=== PATIENT | female | born 1995 | race American Indian/Alaskan Native ===

== ENCOUNTER 2022-02-27 15:02 | Outpatient (CLI) | payer OTHER, MEDICARE ==
[2022-02-27] MEDS ORDERED: LACTATED RINGERS 500 ML IV ONE (16:30)
[2022-02-27 17:03] LABS: Bilirubin,Urine NEG (Negative); Blood,Urine NEG (Negative); Color,Urine Yellow (Yellow); Protein,Urine <15 mg/dL mg/dL (Negative); Urobilinogen,Urine < 2.0 mg/dL (<2.0)
[2022-02-27 17:10] LABS: Bacteria,Urine 1+ /HPF (Negative); Mucus,Urine 2+ /HPF
[2022-02-27 17:55] LABS: Hematocrit 37.4 % (30.3-42.9); Mean Corpuscular HGB Conc 32 % (30-34); Mean Corpuscular Volume 85 fl (79-97); Platelet Count 259 K/mm3 (140-440); Red Blood Count 4.42 M/mm3 (3.65-5.03); Red Cell Distribution Width 13.9 % (13.2-15.2)
[2022-02-27 18:11] LABS: Alanine Aminotransferase 16 units/L (7-56); Uric Acid 4.7 mg/dL (3.5-7.6)
[2022-02-27 18:32] VITALS: BP 126/70
== END 2022-02-27 19:12 | disposition home or self-care (01) ==
LOC: TRG 15:02 → APU 15:02 → TRG 19:12
PROVIDERS: ATTEND Obstetrics & Gynecology
DX: Z34.92 Encounter for supervision of normal pregnancy, unspecified, second trimester (principal); Z3A.26 26 weeks gestation of pregnancy
CPT/HCPCS: 36415; 81001; 82565; 83615; 84450; 84460; 84550; 85027

== ENCOUNTER 2022-04-30 14:51 | Inpatient (IN) | payer OTHER, MEDICARE ==
[2022-04-30] MEDS ORDERED: LACTATED RINGERS 1,000 ML IV SCH (16:15)
[2022-04-30 17:04] LABS: Hematocrit 36.5 % (30.3-42.9); Hemoglobin 11.9 gm/dl (10.1-14.3); Mean Corpuscular HGB Conc 33 % (30-34); Mean Corpuscular Volume 81 fl (79-97); Platelet Count 204 K/mm3 (140-440); Red Cell Distribution Width 13.9 % (13.2-15.2)
[2022-04-30] MEDS ORDERED: ACETAMINOPHEN 325 MG TAB PO PRN (17:17)
[2022-04-30] MEDS ORDERED: DOCUSATE SODIUM 100 MG CAP PO PRN (17:17)
[2022-04-30] MEDS ORDERED: ONDANSETRON 4 MG/2 ML INJ IV PRN (17:17)
[2022-04-30] MEDS ORDERED: SODIUM CHLORIDE NASAL SPRAY 44ML NS PRN (17:17)
[2022-04-30] MEDS ORDERED: CALCIUM GLUCONATE 1000 MG/10 ML INJ IV SCH (17:17)
[2022-04-30] MEDS ORDERED: SIMETHICONE 80 MG CHEW TAB PO PRN (17:17)
[2022-04-30 17:19] LABS: Alanine Aminotransferase 13 units/L (7-56); Uric Acid 4.7 mg/dL (3.5-7.6)
[2022-04-30] MEDS: hydrALAZINE 20 MG/1 ML INJ IV PRN ×2 (17:35→18:32)
[2022-04-30] MEDS ORDERED: MAGNESIUM SULFATE 40GM/1000ML 40 GM/1,000 ML BAG IV SCH (18:00)
[2022-04-30] MEDS ORDERED: MAGNESIUM SULFATE 4 GM/100 ML BAG IV ONE (18:00)
[2022-04-30] MEDS ORDERED: AMPICILLIN/NS 2 GM/100 ML 2 GM/100 ML BAG IV ONE (18:00)
[2022-04-30 18:05] LABS: Bacteria,Urine 3+ /HPF (Negative); Mucus,Urine FEW /HPF
[2022-04-30] MEDS: BETAMET ACET/BETAMET NA PH 6 MG/ML INJ 5 ML MDV IM SCH (18:14)
[2022-04-30 18:15] LABS: Color,Urine Straw (Yellow)
--- NOTE | 2022-04-30 21:25 | History and Physical Report ---
History of Present Illness Date of examination: 04/30/22 Date of admission: 04/30/22 16:16 Chief complaint: sent from [facility] clinic for delivery History of present illness: Pt is a 26 year old -[place] female primigravida ALEXANDER 06/02/22 at 35w2d who presents from [facility] clinic with blood pressures 160-190s/90-100s. The provider there called the on-call physician with recommendation for delivery. She denies headache, blurred vision or RUQ pain. Upon presentation to triage, pt's blood pressures 130-190/90-100s. She has had care at [facility] with comanagement by [facility] secondary to morbid obesity, epilepsy, gestational diabetes A1, anemia with h/o blood transfusion, genital herpes without lesion or prodrome and GBS positive status. Past History Past Medical History: seizure, hematologic disorders (anemia with h/o transfusion), other (morbid obesity) Past Surgical History: no surgical history [employer] REP History: herpes Family/Genetic History: diabetes, heart disease, hypertension Social history: no significant social history - Obstetrical History Expected Date of Delivery: 06/02/22 Actual Gestation: 35 Week(s) 2 Day(s) : 1 Medications and Allergies Allergies Allergy/AdvReac Type Severity Reaction Status Date / Time No Known Allergies Allergy Verified 11/05/15 17:35 Home Medications Medication Instructions Recorded Confirmed Last Taken Type Acyclovir [Zovirax Tab] 800 mg PO 5XD #50 tab 03/26/15 02/27/22 02/27/22 09:30 Rx Ibuprofen [Motrin] 600 mg PO Q8H PRN #20 tablet 07/25/18 02/27/22 02/27/22 09:30 Rx Active Meds: Active Medications Acetaminophen (Acetaminophen 325 Mg Tab) 650 mg PO Q4H PRN PRN Reason: Pain MILD(1-3)/Fever >100.5/JENKINS Betamethasone Acet/Betameth SodPhos (Betamet Acet/Betamet Na Ph 6 Mg/Ml Inj 5 Ml Mdv) 12 mg IM Q24H SARAH Stop: 05/01/22 18:01 Last Admin: 04/30/22 18:14 Dose: 12 mg Calcium Gluconate (Calcium Gluconate 1000 Mg/10 Ml Inj) 1,000 mg IV ONCE SARAH Dinoprostone (Dinoprostone 10 Mg Vag Supp) 10 mg VG ONCE ONE Stop: 04/30/22 21:23 Docusate Sodium (Docusate Sodium 100 Mg Cap) 100 mg PO Q12H PRN PRN Reason: Constipation Hydralazine HCl (Hydralazine 20 Mg/1 Ml Inj) 5 mg IV Q30MIN PRN PRN Reason: Hypertension Last Admin: 04/30/22 18:32 Dose: 5 mg Lactated Ringer's (Lactated Ringers) 1,000 mls @ 125 mls/hr IV DIRECT SARAH Last Admin: 04/30/22 17:57 Dose: 75 mls/hr Lactated Ringer's (Lactated Ringers) 1,000 mls @ 125 mls/hr IV DIRECT SARAH Ampicillin Sodium (Ampicillin/Ns 1 Gm/50 Ml) 1 gm in 50 mls @ 100 mls/hr IV Q4H SARAH; Protocol Magnesium Sulfate (Magnesium Sulfate 40gm/1000ml) 40 gm in 1,000 mls @ 50 mls/hr IV DIRECT SARAH Multivitamins/Iron/Calcium ( [id number] Fumarate-Folic Acid Vit Tab) 1 each PO QDAY SARAH Ondansetron HCl (Ondansetron 4 Mg/2 Ml Inj) 4 mg IV Q6H PRN PRN Reason: Nausea And Vomiting Simethicone (Simethicone 80 Mg Chew Tab) 80 mg PO Q6H PRN PRN Reason: Gas pain Sodium Chloride (Sodium Chloride Nasal [place] 44ml) 2 spray NS Q4H PRN PRN Reason: Congestion Review of Systems All systems: negative - Vital Signs Vital signs: Vital Signs Pulse Ox 83 L 02/27/22 18:52 Temp Pulse Resp BP Pulse Ox 97.8 F 106 H 16 158/70 98 04/30/22 20:19 04/30/22 21:21 04/30/22 20:19 04/30/22 21:21 04/30/22 21:18 - Physical Exam Breasts: Positive: deferred Abdomen: Positive: soft (obese, gravid ) Uterus: Positive: enlarged (gravid ) Extremities: Positive: edema - Obstetrical FHR: auscultation normal Uterine Contraction Monitor Mode: External Uterine Contraction Pattern: Absent Results Result Diagrams: 04/30/22 16:27 04/30/22 16:27 Abnormal lab results 09/09/2004/30/22 04/30/22 Range/Units 15:30 16:27 16:27 MCH 26 L (28-32) pg Creatinine 0.5 L (0.6-1.2) mg/dL Lactate Dehydrogenase 227 H (91-180) units/L Urine WBC (Auto) 7.0 H (0.0-6.0) /HPF U Epithel Cells (Auto) 41.0 H (0-13.0) /HPF All other labs normal. Assessment and Plan A: IUP at 35w2d Gestational Hypertension with Severe Features Morbid Obesity Epilepsy Gestational Diabetes A1 H/o Anemia with blood transfusion Genital Herpes without lesion or prodrome GBS positive status P: Admit to labor and delivery Begin magnesium sulfate for seizure prophylaxis Betamethasone 12 mg IM q 24 hrs x 2 doses Valtrex suppressive therapy Cervical ripening with cervidil Accuchecks q 6 hrs initially Closely monitor maternal and status
[2022-04-30] MEDS ORDERED: AMPICILLIN/NS 1 GM/50 ML 1 GM/50 ML BAG IV SCH (22:00)
[2022-04-30] MEDS ORDERED: DINOPROSTONE 10 MG VAG SUPP VG ONE (23:22)
[2022-05-01] MEDS: hydrALAZINE 20 MG/1 ML INJ IV PRN ×2 (04:22→04:50)
--- NOTE | 2022-05-01 08:17 | Progress Note ---
Assessment and Plan - Patient Problems (1) Hypertension affecting Current Visit: Yes Status: Acute Plan to address problem: Initiate induction with Cervidil (2) Morbid obesity Current Visit: Yes Status: Acute (3) Gestational diabetes Current Visit: Yes Status: Acute Subjective - Subjective Date of service: 05/01/22 Principal diagnosis: Hypertension affecting Interval history: 26-year-old G1, P0 at 35+2 weeks being induced for hypertension and diabetes. The patient will be receiving Cervidil for her induction. She is currently without any complaints. She is receiving magnesium sulfate therapy for preeclampsia. Patient reports: movement normal, no new complaints Objective - Vital Signs Vital Signs: Vital Signs - 12hr 04/30/22 04/30/22 04/30/22 20:18 20:19 20:20 Temperature 97.8 F Pulse Rate 110 H 104 H Respiratory 16 Rate Blood Pressure 167/83 O2 Sat by Pulse 98 99 Oximetry 04/30/22 04/30/22 04/30/22 20:23 20:28 20:33 Temperature Pulse Rate 106 H 104 H 110 H Respiratory Rate Blood Pressure O2 Sat by Pulse 98 99 97 Oximetry 04/30/22 04/30/22 04/30/22 20:35 20:38 20:43 Temperature Pulse Rate 108 H 105 H 107 H Respiratory Rate Blood Pressure 159/83 O2 Sat by Pulse 99 98 Oximetry 04/30/22 04/30/22 04/30/22 20:48 20:50 20:53 Temperature Pulse Rate 114 H 104 H 113 H Respiratory Rate Blood Pressure 151/71 O2 Sat by Pulse 99 99 Oximetry 04/30/22 04/30/22 04/30/22 20:58 21:03 21:05 Temperature Pulse Rate 114 H 107 H 109 H Respiratory Rate Blood Pressure 151/75 O2 Sat by Pulse 98 99 Oximetry 04/30/22 04/30/22 04/30/22 21:08 21:13 21:18 Temperature Pulse Rate 106 H 104 H 105 H Respiratory Rate Blood Pressure O2 Sat by Pulse 99 98 98 Oximetry 04/30/22 04/30/22 04/30/22 21:21 21:23 21:28 Temperature Pulse Rate 106 H 110 H 106 H Respiratory Rate Blood Pressure 158/70 O2 Sat by Pulse 98 99 Oximetry 04/30/22 04/30/22 04/30/22 21:33 21:36 21:38 Temperature Pulse Rate 106 H 107 H 107 H Respiratory Rate Blood Pressure 170/86 O2 Sat by Pulse 98 98 Oximetry 04/30/22 04/30/22 04/30/22 21:43 21:48 21:50 Temperature Pulse Rate 116 H 115 H 107 H Respiratory Rate Blood Pressure 165/81 O2 Sat by Pulse 99 99 Oximetry 04/30/22 04/30/22 04/30/22 21:53 21:58 22:03 Temperature Pulse Rate 111 H 108 H 107 H Respiratory Rate Blood Pressure O2 Sat by Pulse 99 98 99 Oximetry 04/30/22 04/30/22 04/30/22 22:05 22:08 22:13 Temperature Pulse Rate 108 H 107 H 104 H Respiratory Rate Blood Pressure 155/73 O2 Sat by Pulse 98 99 Oximetry 04/30/22 04/30/22 04/30/22 22:18 22:20 22:23 Temperature Pulse Rate 101 H 102 H 102 H Respiratory Rate Blood Pressure 154/70 O2 Sat by Pulse 98 98 Oximetry 04/30/22 04/30/22 04/30/22 22:28 22:33 22:35 Temperature Pulse Rate 99 H 108 H 100 H Respiratory Rate Blood Pressure 159/77 O2 Sat by Pulse 100 99 Oximetry 04/30/22 04/30/22 04/30/22 22:38 22:43 22:48 Temperature Pulse Rate 104 H 103 H 104 H Respiratory Rate Blood Pressure O2 Sat by Pulse 99 99 98 Oximetry 04/30/22 04/30/22 04/30/22 22:50 22:53 22:58 Temperature Pulse Rate 103 H 105 H 102 H Respiratory Rate Blood Pressure 144/75 O2 Sat by Pulse 98 98 Oximetry 04/30/22 04/30/22 04/30/22 23:03 23:05 23:08 Temperature Pulse Rate 106 H 100 H 103 H Respiratory Rate Blood Pressure 137/65 O2 Sat by Pulse 99 97 Oximetry 04/30/22 04/30/22 04/30/22 23:13 23:18 23:20 Temperature Pulse Rate 105 H 102 H 105 H Respiratory Rate Blood Pressure 143/67 O2 Sat by Pulse 99 98 Oximetry 04/30/22 04/30/22 04/30/22 23:23 23:28 23:33 Temperature Pulse Rate 101 H 105 H 106 H Respiratory Rate Blood Pressure O2 Sat by Pulse 98 99 99 Oximetry 04/30/22 04/30/22 04/30/22 23:35 23:38 23:43 Temperature Pulse Rate 103 H 105 H 102 H Respiratory Rate Blood Pressure 149/68 O2 Sat by Pulse 98 98 Oximetry 04/30/22 04/30/22 04/30/22 23:48 23:50 23:53 Temperature Pulse Rate 103 H 105 H 109 H Respiratory Rate Blood Pressure 158/75 O2 Sat by Pulse 98 98 Oximetry 04/30/22 05/01/22 05/01/22 23:58 00:03 00:06 Temperature Pulse Rate 104 H 109 H 102 H Respiratory Rate Blood Pressure 181/86 O2 Sat by Pulse 97 98 Oximetry 05/01/22 05/01/22 05/01/22 00:08 00:13 00:18 Temperature Pulse Rate 107 H 114 H 105 H Respiratory Rate Blood Pressure O2 Sat by Pulse 98 97 98 Oximetry 05/01/22 05/01/22 05/01/22 00:20 00:23 00:28 Temperature Pulse Rate 104 H 115 H 108 H Respiratory Rate Blood Pressure 152/74 O2 Sat by Pulse 98 98 Oximetry 05/01/22 05/01/22 05/01/22 00:33 00:35 00:38 Temperature Pulse Rate 109 H 100 H 104 H Respiratory Rate Blood Pressure 157/76 O2 Sat by Pulse 99 98 Oximetry 05/01/22 05/01/22 05/01/22 00:43 00:48 00:50 Temperature Pulse Rate 108 H 104 H 101 H Respiratory Rate Blood Pressure 146/70 O2 Sat by Pulse 98 98 Oximetry 05/01/22 05/01/22 05/01/22 00:53 00:58 01:03 Temperature Pulse Rate 106 H 103 H 101 H Respiratory Rate Blood Pressure O2 Sat by Pulse 99 98 99 Oximetry 05/01/22 05/01/22 05/01/22 01:05 01:08 01:13 Temperature Pulse Rate 103 H 102 H 105 H Respiratory Rate Blood Pressure 149/71 O2 Sat by Pulse 99 98 Oximetry 05/01/22 05/01/22 05/01/22 01:18 01:21 01:23 Temperature Pulse Rate 103 H 103 H 114 H Respiratory Rate Blood Pressure 157/77 O2 Sat by Pulse 98 98 Oximetry 05/01/22 05/01/22 05/01/22 01:28 01:33 01:35 Temperature Pulse Rate 101 H 115 H 103 H Respiratory Rate Blood Pressure 156/68 O2 Sat by Pulse 98 98 Oximetry 05/01/22 05/01/22 05/01/22 01:38 01:43 01:48 Temperature Pulse Rate 103 H 101 H 103 H Respiratory Rate Blood Pressure O2 Sat by Pulse 98 98 98 Oximetry 05/01/22 05/01/22 05/01/22 01:50 01:53 01:58 Temperature Pulse Rate 100 H 104 H 104 H Respiratory Rate Blood Pressure 162/71 O2 Sat by Pulse 97 98 Oximetry 05/01/22 05/01/22 05/01/22 02:03 02:05 02:08 Temperature Pulse Rate 98 H 94 H 98 H Respiratory Rate Blood Pressure 152/70 O2 Sat by Pulse 99 98 Oximetry 05/01/22 05/01/22 05/01/22 02:13 02:18 02:20 Temperature Pulse Rate 98 H 112 H 99 H Respiratory Rate Blood Pressure 150/71 O2 Sat by Pulse 98 98 Oximetry 05/01/22 05/01/22 05/01/22 02:23 02:28 02:33 Temperature Pulse Rate 103 H 105 H 95 H Respiratory Rate Blood Pressure O2 Sat by Pulse 99 99 100 Oximetry 05/01/22 05/01/22 05/01/22 02:35 02:38 02:43 Temperature Pulse Rate 100 H 99 H 92 H Respiratory Rate Blood Pressure 146/88 O2 Sat by Pulse 97 98 Oximetry 05/01/22 05/01/22 05/01/22 02:48 02:50 02:53 Temperature Pulse Rate 104 H 96 H 119 H Respiratory Rate Blood Pressure 155/87 O2 Sat by Pulse 96 99 Oximetry 05/01/22 05/01/22 05/01/22 02:58 03:03 03:05 Temperature Pulse Rate 100 H 102 H 99 H Respiratory Rate Blood Pressure 162/87 O2 Sat by Pulse 98 97 Oximetry 05/01/22 05/01/22 05/01/22 03:08 03:13 03:18 Temperature Pulse Rate 100 H 101 H 102 H Respiratory Rate Blood Pressure O2 Sat by Pulse 98 97 97 Oximetry 05/01/22 05/01/22 05/01/22 03:20 03:23 03:28 Temperature Pulse Rate 115 H 107 H 98 H Respiratory Rate Blood Pressure 174/92 O2 Sat by Pulse 97 95 Oximetry 05/01/22 05/01/22 05/01/22 03:30 03:33 03:36 Temperature Pulse Rate 99 H 99 H 118 H Respiratory Rate Blood Pressure 167/83 O2 Sat by Pulse 94 96 Oximetry 05/01/22 05/01/22 05/01/22 03:38 03:43 03:48 Temperature Pulse Rate 104 H 110 H 104 H Respiratory Rate Blood Pressure O2 Sat by Pulse 96 97 98 Oximetry 05/01/22 05/01/22 05/01/22 03:50 03:51 03:53 Temperature Pulse Rate 98 H 101 H 103 H Respiratory Rate Blood Pressure 165/76 167/71 O2 Sat by Pulse 94 Oximetry 05/01/22 05/01/22 05/01/22 03:58 04:03 04:05 Temperature Pulse Rate 104 H 98 H 99 H Respiratory Rate Blood Pressure 171/78 O2 Sat by Pulse 98 96 Oximetry 05/01/22 05/01/22 05/01/22 04:08 04:13 04:18 Temperature Pulse Rate 102 H 94 H 93 H Respiratory Rate Blood Pressure O2 Sat by Pulse 97 98 98 Oximetry 05/01/22 05/01/22 05/01/22 04:20 04:23 04:28 Temperature Pulse Rate 93 H 94 H 95 H Respiratory Rate Blood Pressure 175/83 O2 Sat by Pulse 98 99 Oximetry 05/01/22 05/01/22 05/01/22 04:33 04:35 04:38 Temperature Pulse Rate 96 H 94 H 98 H Respiratory Rate Blood Pressure 170/80 O2 Sat by Pulse 99 98 Oximetry 05/01/22 05/01/22 05/01/22 04:43 04:48 04:51 Temperature Pulse Rate 98 H 95 H 95 H Respiratory Rate Blood Pressure 147/85 O2 Sat by Pulse 95 98 Oximetry 05/01/22 05/01/22 05/01/22 04:53 04:58 05:03 Temperature Pulse Rate 97 H 96 H 97 H Respiratory Rate Blood Pressure O2 Sat by Pulse 99 99 99 Oximetry 05/01/22 05/01/22 05/01/22 05:05 05:08 05:13 Temperature Pulse Rate 103 H 95 H 95 H Respiratory Rate Blood Pressure 154/83 O2 Sat by Pulse 99 99 Oximetry 05/01/22 05/01/22 05/01/22 05:18 05:20 05:23 Temperature Pulse Rate 106 H 96 H 101 H Respiratory Rate Blood Pressure 166/85 O2 Sat by Pulse 99 99 Oximetry 05/01/22 05/01/22 05/01/22 05:28 05:33 05:38 Temperature Pulse Rate 96 H 102 H 98 H Respiratory Rate Blood Pressure O2 Sat by Pulse 99 98 99 Oximetry 05/01/22 05/01/22 05/01/22 05:42 05:43 05:48 Temperature Pulse Rate 93 H 107 H 112 H Respiratory Rate Blood Pressure 148/87 O2 Sat by Pulse 98 99 Oximetry 05/01/22 05/01/22 05/01/22 05:50 05:53 05:58 Temperature Pulse Rate 90 96 H 96 H Respiratory Rate Blood Pressure 150/64 O2 Sat by Pulse 99 99 Oximetry 05/01/22 05/01/22 05/01/22 06:03 06:05 06:08 Temperature Pulse Rate 92 H 90 94 H Respiratory Rate Blood Pressure 139/64 O2 Sat by Pulse 97 97 Oximetry 05/01/22 05/01/22 05/01/22 06:13 06:18 06:20 Temperature Pulse Rate 98 H 100 H 100 H Respiratory Rate Blood Pressure 135/65 O2 Sat by Pulse 97 98 Oximetry 05/01/22 05/01/22 05/01/22 06:23 06:28 06:33 Temperature Pulse Rate 96 H 97 H 105 H Respiratory Rate Blood Pressure O2 Sat by Pulse 98 99 99 Oximetry 05/01/22 05/01/22 05/01/22 06:36 06:38 06:43 Temperature Pulse Rate 97 H 98 H 98 H Respiratory Rate Blood Pressure 170/89 O2 Sat by Pulse 99 100 Oximetry 05/01/22 05/01/22 05/01/22 06:48 06:50 06:53 Temperature Pulse Rate 114 H 106 H 109 H Respiratory Rate Blood Pressure 169/86 O2 Sat by Pulse 99 98 Oximetry 05/01/22 05/01/22 05/01/22 06:58 07:03 07:05 Temperature Pulse Rate 109 H 104 H 103 H Respiratory Rate Blood Pressure 157/73 O2 Sat by Pulse 99 99 Oximetry 05/01/22 05/01/22 05/01/22 07:08 07:13 07:18 Temperature Pulse Rate 106 H 103 H 100 H Respiratory Rate Blood Pressure O2 Sat by Pulse 99 99 99 Oximetry 05/01/22 05/01/2222 07:20 07:23 07:28 Temperature Pulse Rate 100 H 103 H 106 H Respiratory Rate Blood Pressure 155/71 O2 Sat by Pulse 99 98 Oximetry 05/01/22 05/01/22 05/01/22 07:33 07:35 07:38 Temperature Pulse Rate 109 H 100 H 105 H Respiratory Rate Blood Pressure 160/70 O2 Sat by Pulse 98 97 Oximetry 05/01/22 05/01/22 05/01/22 07:43 07:48 07:50 Temperature Pulse Rate 106 H 100 H 104 H Respiratory Rate Blood Pressure 149/66 O2 Sat by Pulse 97 97 Oximetry 05/01/22 05/01/22 05/01/22 07:53 07:58 08:03 Temperature Pulse Rate 103 H 118 H 112 H Respiratory Rate Blood Pressure O2 Sat by Pulse 98 98 98 Oximetry 05/01/22 05/01/22 05/01/22 08:07 08:08 08:13 Temperature Pulse Rate 105 H 105 H 106 H Respiratory Rate Blood Pressure 151/74 O2 Sat by Pulse 99 98 Oximetry - Labs Labs: Abnormal Labs 04/30/22 04/30/22 04/30/22 15:30 16:27 16:27 MCH 26 L Creatinine 0.5 L POC Glucose Magnesium Lactate Dehydrogenase 227 H Urine WBC (Auto) 7.0 H U Epithel Cells (Auto) 41.0 H 04/30/22 05/01/22 05/01/22 21:55 00:04 00:16 MCH Creatinine POC Glucose 148 H Magnesium 3.40 H 3.70 H Lactate Dehydrogenase Urine WBC (Auto) U Epithel Cells (Auto) 05/01/22 05:37 MCH Creatinine POC Glucose Magnesium 4.20 H Lactate Dehydrogenase Urine WBC (Auto) U Epithel Cells (Auto) Laboratory Results - last 24 hr 04/30/22 04/30/22 04/30/22 15:30 16:27 16:27 WBC 9.2 RBC 4.50 Hgb 11.9 Hct 36.5 MCV 81 MCH 26 L MCHC 33 RDW 13.9 Plt Count 204 Creatinine 0.5 L Estimated GFR > 60 POC Glucose Uric Acid 4.7 Magnesium AST 14 ALT 13 Lactate Dehydrogenase 227 H Urine Color Straw Urine Turbidity Cloudy Specific Parsons (Man) 1.025 Ur Protein (Man) <30 mg dl Ur Ketones (Man) 5 Ur Nitrite (Man) Negative Ur Reducing Substances Not Reportable Urine Bilirubin (Man) Negative Urine Ictotest Not Reportable Leukocyte Esterase (Man) Negative Urine WBC (Auto) 7.0 H Urine RBC (Auto) 4.0 U Epithel Cells (Auto) 41.0 H Urine Bacteria (Auto) 3+ Urine RBC (Manual) Negative Urine Mucus Few Blood Type Antibody Screen 04/30/22 04/30/22 04/30/22 16:27 18:14 21:55 WBC RBC Hgb Hct MCV MCH MCHC RDW Plt Count Creatinine Estimated GFR POC Glucose 99 Uric Acid Magnesium 3.40 H AST ALT Lactate Dehydrogenase Urine Color Urine Turbidity Specific Parsons (Man) Ur Protein (Man) Ur Ketones (Man) Ur Nitrite (Man) Ur Reducing Substances Urine Bilirubin (Man) Urine Ictotest Leukocyte Esterase (Man) Urine WBC (Auto) Urine RBC (Auto) U Epithel Cells (Auto) Urine Bacteria (Auto) Urine RBC (Manual) Urine Mucus Blood Type A POSITIVE Antibody Screen Negative 05/01/22 05/01/22 05/01/22 00:04 00:16 05:37 WBC RBC Hgb Hct MCV MCH MCHC RDW Plt Count Creatinine Estimated GFR POC Glucose 148 H Uric Acid Magnesium 3.70 H 4.20 H AST ALT Lactate Dehydrogenase Urine Color Urine Turbidity Specific Parsons (Man) Ur Protein (Man) Ur Ketones (Man) Ur Nitrite (Man) Ur Reducing Substances Urine Bilirubin (Man) Urine Ictotest Leukocyte Esterase (Man) Urine WBC (Auto) Urine RBC (Auto) U Epithel Cells (Auto) Urine Bacteria (Auto) Urine RBC (Manual) Urine Mucus Blood Type Antibody Screen
[2022-05-01] MEDS: PRENATAL VIT27-FE FUMARATE-FOLIC ACID VIT TAB PO SCH (10:18)
[2022-05-01] MEDS: valACYclovir 500 MG TAB PO SCH (10:19)
[2022-05-01] MEDS ORDERED: metFORMIN 850 MG TAB PO ONE (10:30)
[2022-05-01] MEDS ORDERED: DINOPROSTONE 10 MG VAG SUPP VG NR (11:00)
[2022-05-01] MEDS: BETAMET ACET/BETAMET NA PH 6 MG/ML INJ 5 ML MDV IM SCH (18:16)
[2022-05-02] MEDS: hydrALAZINE 20 MG/1 ML INJ IV PRN ×5 (00:18→09:03)
[2022-05-02] MEDS: miSOPROStol 25 MCG TAB VG PRN ×3 (01:35→09:24)
[2022-05-02] MEDS ORDERED: DEXTROSE 50% IN WATER (25GM) 50 ML SYRINGE IV PRN (03:44)
[2022-05-02] MEDS ORDERED: INSULIN REGULAR, HUMAN 100 UNITS/1 ML SUB-Q ONE (03:53)
[2022-05-02] MEDS ORDERED: INSULIN REGULAR, HUMAN 100 UNITS/1 ML SUB-Q SCH (04:00)
[2022-05-02] MEDS ORDERED: INSULIN NPH/REGULAR 70/30 INJ SUB-Q ONE (04:43)
--- NOTE | 2022-05-02 07:40 | Progress Note ---
Assessment and Plan - Patient Problems (1) Hypertension affecting Current Visit: Yes Status: Acute Plan to address problem: Cook catheter placed Will receive next Cytotec dose orally Transition to Pitocin (2) Morbid obesity Current Visit: Yes Status: Acute (3) Gestational diabetes Current Visit: Yes Status: Acute Subjective - Subjective Date of service: 05/02/22 Principal diagnosis: Hypertension affecting Interval history: 26-year-old G1, P0 at 35+3 weeks being induced for hypertension and diabetes. During the night the patient experienced some mild shortness of breath. Her O2 sats were 99%. Magnesium sulfate was held. She is only having intermittent contractions with the Cytotec. Cervix is currently 1 cm dilated intact. Cook catheter placed for manual dilation of the cervix. Patient reports: movement normal Objective - Vital Signs Vital Signs: Vital Signs - 12hr 05/01/22 05/01/22 05/01/22 19:43 19:48 19:53 Temperature Pulse Rate 114 H 108 H 100 H Respiratory Rate Blood Pressure O2 Sat by Pulse 100 100 99 Oximetry 05/01/22 05/01/22 05/01/22 19:58 20:03 20:08 Temperature Pulse Rate 100 H 106 H 105 H Respiratory Rate Blood Pressure O2 Sat by Pulse 100 100 99 Oximetry 05/01/22 05/01/22 05/01/22 20:13 20:18 20:23 Temperature Pulse Rate 103 H 107 H 112 H Respiratory Rate Blood Pressure O2 Sat by Pulse 100 100 100 Oximetry 05/01/22 05/01/22 05/01/22 20:28 20:33 20:38 Temperature Pulse Rate 104 H 104 H 99 H Respiratory Rate Blood Pressure 143/79 O2 Sat by Pulse 99 99 99 Oximetry 05/01/22 05/01/22 05/01/22 20:43 20:48 20:53 Temperature Pulse Rate 106 H 102 H 111 H Respiratory Rate Blood Pressure O2 Sat by Pulse 99 99 99 Oximetry 05/01/22 05/01/22 05/01/22 20:58 21:03 21:08 Temperature Pulse Rate 101 H 111 H 102 H Respiratory Rate Blood Pressure O2 Sat by Pulse 99 99 99 Oximetry 05/01/22 05/01/22 05/01/22 21:13 21:18 21:23 Temperature Pulse Rate 98 H 102 H 105 H Respiratory Rate Blood Pressure O2 Sat by Pulse 99 100 99 Oximetry 05/01/22 05/01/22 05/01/22 21:28 21:33 21:34 Temperature Pulse Rate 103 H 115 H 58 L Respiratory Rate Blood Pressure O2 Sat by Pulse 98 98 94 Oximetry 05/01/22 05/01/22 05/01/22 21:38 21:43 21:48 Temperature Pulse Rate 98 H 97 H 108 H Respiratory Rate Blood Pressure 173/88 O2 Sat by Pulse 98 98 99 Oximetry 05/01/22 05/01/22 05/01/22 21:53 21:58 22:03 Temperature Pulse Rate 105 H 114 H 99 H Respiratory Rate Blood Pressure O2 Sat by Pulse 98 98 98 Oximetry 05/01/22 05/01/22 05/01/22 22:08 22:13 22:18 Temperature Pulse Rate 116 H 105 H 101 H Respiratory Rate Blood Pressure O2 Sat by Pulse 99 99 98 Oximetry 05/01/22 05/01/22 05/01/22 22:23 22:28 22:33 Temperature Pulse Rate 107 H 99 H 107 H Respiratory Rate Blood Pressure O2 Sat by Pulse 96 98 97 Oximetry 05/01/22 05/01/22 05/01/22 22:38 22:43 22:48 Temperature Pulse Rate 101 H 103 H 102 H Respiratory Rate Blood Pressure 147/80 O2 Sat by Pulse 97 97 98 Oximetry 05/01/22 05/01/22 05/01/22 22:53 22:58 23:03 Temperature 97.8 F Pulse Rate 114 H 107 H 108 H Respiratory 18 Rate Blood Pressure O2 Sat by Pulse 99 99 99 Oximetry 05/01/22 05/02/22 05/02/22 23:08 00:09 00:13 Temperature Pulse Rate 105 H 100 H 101 H Respiratory Rate Blood Pressure 183/100 O2 Sat by Pulse 97 99 Oximetry 05/02/22 05/02/22 05/02/22 00:14 00:18 00:19 Temperature Pulse Rate 104 H 104 H 100 H Respiratory Rate Blood Pressure 183/100 O2 Sat by Pulse 98 97 Oximetry 05/02/22 05/02/22 05/02/22 00:24 00:29 00:34 Temperature Pulse Rate 102 H 108 H 108 H Respiratory Rate Blood Pressure O2 Sat by Pulse 98 99 99 Oximetry 05/02/22 05/02/22 05/02/22 00:39 00:44 00:49 Temperature Pulse Rate 105 H 114 H 111 H Respiratory Rate Blood Pressure O2 Sat by Pulse 98 98 99 Oximetry 05/02/22 05/02/22 05/02/22 00:50 00:54 00:59 Temperature Pulse Rate 102 H 100 H 101 H Respiratory Rate Blood Pressure 168/86 O2 Sat by Pulse 98 99 Oximetry 05/02/22 05/02/22 05/02/22 01:04 01:09 01:14 Temperature Pulse Rate 101 H 96 H 97 H Respiratory Rate Blood Pressure O2 Sat by Pulse 99 99 95 Oximetry 05/02/22 05/02/22 05/02/22 01:19 01:20 01:24 Temperature Pulse Rate 100 H 100 H 95 H Respiratory Rate Blood Pressure 182/98 O2 Sat by Pulse 99 99 Oximetry 05/02/22 05/02/22 05/02/22 01:29 01:31 01:32 Temperature Pulse Rate 105 H 93 H 96 H Respiratory Rate Blood Pressure 179/92 179/92 O2 Sat by Pulse 99 Oximetry 05/02/22 05/02/22 05/02/22 01:34 01:39 01:44 Temperature Pulse Rate 94 H 110 H 98 H Respiratory Rate Blood Pressure O2 Sat by Pulse 99 100 100 Oximetry 05/02/22 05/02/22 05/02/22 01:49 01:54 01:59 Temperature Pulse Rate 96 H 108 H 100 H Respiratory Rate Blood Pressure O2 Sat by Pulse 99 99 99 Oximetry 05/02/22 05/02/22 05/02/22 02:04 02:09 02:14 Temperature Pulse Rate 97 H 92 H 90 Respiratory Rate Blood Pressure 139/77 O2 Sat by Pulse 100 100 100 Oximetry 05/02/22 05/02/22 05/02/22 02:19 02:24 02:29 Temperature Pulse Rate 91 H 101 H 96 H Respiratory Rate Blood Pressure O2 Sat by Pulse 100 100 100 Oximetry 05/02/22 05/02/22 05/02/22 02:34 02:35 02:39 Temperature Pulse Rate 94 H 94 H 119 H Respiratory Rate Blood Pressure 180/86 O2 Sat by Pulse 99 100 Oximetry 05/02/22 05/02/22 05/02/22 02:44 02:49 02:54 Temperature Pulse Rate 93 H 111 H 92 H Respiratory Rate Blood Pressure O2 Sat by Pulse 99 97 100 Oximetry 05/02/22 05/02/2222 02:59 03:04 03:09 Temperature Pulse Rate 94 H 90 119 H Respiratory Rate Blood Pressure 145/69 O2 Sat by Pulse 100 100 100 Oximetry 05/02/22 05/02/22 05/02/22 03:14 03:19 03:24 Temperature Pulse Rate 117 H 106 H 97 H Respiratory Rate Blood Pressure O2 Sat by Pulse 99 99 99 Oximetry 05/02/22 05/02/22 05/02/22 03:29 03:34 03:39 Temperature Pulse Rate 92 H 90 108 H Respiratory Rate Blood Pressure 140/78 O2 Sat by Pulse 99 99 99 Oximetry 05/02/22 05/02/22 05/02/22 03:44 03:49 03:54 Temperature Pulse Rate 120 H 106 H 102 H Respiratory Rate Blood Pressure O2 Sat by Pulse 99 98 100 Oximetry 05/02/22 05/02/22 05/02/22 03:59 04:04 04:05 Temperature Pulse Rate 99 H 102 H 105 H Respiratory Rate Blood Pressure 146/76 O2 Sat by Pulse 99 100 Oximetry 05/02/22 05/02/22 05/02/22 04:09 04:14 04:19 Temperature Pulse Rate 107 H 109 H 91 H Respiratory Rate Blood Pressure O2 Sat by Pulse 99 99 100 Oximetry 05/02/22 05/02/22 05/02/22 04:24 04:29 04:34 Temperature Pulse Rate 96 H 99 H 94 H Respiratory Rate Blood Pressure O2 Sat by Pulse 99 97 99 Oximetry 05/02/22 05/02/22 05/02/22 04:35 04:39 04:44 Temperature Pulse Rate 95 H 91 H 97 H Respiratory Rate Blood Pressure 181/79 O2 Sat by Pulse 98 99 Oximetry 05/02/22 05/02/22 05/02/22 04:49 04:54 04:59 Temperature Pulse Rate 95 H 94 H 101 H Respiratory Rate Blood Pressure O2 Sat by Pulse 100 100 100 Oximetry 05/02/22 05/02/22 05/02/22 05:04 05:05 05:09 Temperature Pulse Rate 91 H 89 106 H Respiratory Rate Blood Pressure 176/85 O2 Sat by Pulse 100 100 Oximetry 05/02/22 05/02/22 05/02/22 05:10 05:14 05:19 Temperature Pulse Rate 88 112 H 109 H Respiratory Rate Blood Pressure 176/85 O2 Sat by Pulse 100 100 Oximetry 05/02/22 05/02/22 05/02/22 05:23 05:24 05:29 Temperature Pulse Rate 110 H 104 H 104 H Respiratory Rate Blood Pressure O2 Sat by Pulse 93 74 L 100 Oximetry 05/02/22 05/02/22 05/02/22 05:34 05:39 05:44 Temperature Pulse Rate 105 H 98 H 105 H Respiratory Rate Blood Pressure O2 Sat by Pulse 100 99 99 Oximetry 05/02/22 05/02/22 05/02/22 05:48 05:49 05:54 Temperature Pulse Rate 96 H 102 H 100 H Respiratory Rate Blood Pressure 179/81 O2 Sat by Pulse 100 100 Oximetry 05/02/22 05/02/22 05/02/22 05:56 05:59 06:04 Temperature Pulse Rate 100 H 97 H 96 H Respiratory Rate Blood Pressure 179/81 O2 Sat by Pulse 100 100 Oximetry 05/02/22 05/02/22 05/02/22 06:09 06:14 06:17 Temperature Pulse Rate 99 H 99 H 100 H Respiratory Rate Blood Pressure 130/60 O2 Sat by Pulse 100 100 Oximetry 05/02/22 05/02/22 05/02/22 06:19 06:24 06:29 Temperature Pulse Rate 106 H 103 H 99 H Respiratory Rate Blood Pressure O2 Sat by Pulse 99 100 96 Oximetry 05/02/22 05/02/22 05/02/22 06:34 06:39 06:43 Temperature Pulse Rate 100 H 96 H 108 H Respiratory Rate Blood Pressure O2 Sat by Pulse 99 100 92 Oximetry 05/02/22 05/02/22 05/02/22 06:44 06:47 06:49 Temperature Pulse Rate 106 H 108 H 98 H Respiratory Rate Blood Pressure 145/85 O2 Sat by Pulse 96 99 Oximetry 05/02/22 05/02/22 05/02/22 06:54 06:58 06:59 Temperature Pulse Rate 102 H 93 H 103 H Respiratory Rate Blood Pressure O2 Sat by Pulse 100 89 99 Oximetry 05/02/22 05/02/22 05/02/22 07:04 07:09 07:14 Temperature Pulse Rate 91 H 121 H 94 H Respiratory Rate Blood Pressure O2 Sat by Pulse 100 100 100 Oximetry 05/02/22 05/02/22 05/02/22 07:19 07:24 07:29 Temperature Pulse Rate 101 H 105 H 111 H Respiratory Rate Blood Pressure O2 Sat by Pulse 100 100 99 Oximetry 05/02/22 05/02/22 07:33 07:34 Temperature Pulse Rate 108 H Respiratory Rate Blood Pressure O2 Sat by Pulse 93 100 Oximetry - Exam Lungs: Clear to auscultation Cervical Dilatation: 1 - Labs Labs: Abnormal Labs 04/30/22 04/30/22 04/30/22 15:30 16:27 16:27 MCH 26 L Creatinine 0.5 L POC Glucose Magnesium Lactate Dehydrogenase 227 H Urine WBC (Auto) 7.0 H U Epithel Cells (Auto) 41.0 H 04/30/22 05/01/22 05/01/22 21:55 00:04 00:16 MCH Creatinine POC Glucose 148 H Magnesium 3.40 H 3.70 H Lactate Dehydrogenase Urine WBC (Auto) U Epithel Cells (Auto) 05/01/22 05/01/22 05/01/22 05:37 07:06 13:59 MCH Creatinine POC Glucose 143 H 142 H Magnesium 4.20 H Lactate Dehydrogenase Urine WBC (Auto) U Epithel Cells (Auto) 05/01/22 05/01/22 05/02/22 18:18 19:53 03:17 MCH Creatinine POC Glucose 130 H 203 H Magnesium 4.60 H Lactate Dehydrogenase Urine WBC (Auto) U Epithel Cells (Auto) 05/02/22 03:39 MCH Creatinine POC Glucose 190 H Magnesium Lactate Dehydrogenase Urine WBC (Auto) U Epithel Cells (Auto) Laboratory Results - last 24 hr 05/01/22 05/01/22 05/01/22 07:06 08:45 13:59 POC Glucose 143 H 142 H Magnesium SARS-CoV-2 (PCR) Negative 05/01/22 05/01/22 05/02/22 18:18 19:53 03:17 POC Glucose 130 H 203 H Magnesium 4.60 H SARS-CoV-2 (PCR) 05/02/22 03:39 POC Glucose 190 H Magnesium SARS-CoV-2 (PCR)
[2022-05-02] MEDS ORDERED: CALCIUM GLUCONATE 1000 MG/10 ML INJ IV SCH (08:00)
[2022-05-02] MEDS ORDERED: AMPICILLIN/NS 2 GM/100 ML 2 GM/100 ML BAG IV SCH (08:00)
[2022-05-02] MEDS: metFORMIN 850 MG TAB PO SCH (11:11)
[2022-05-02] MEDS: PRENATAL VIT27-FE FUMARATE-FOLIC ACID VIT TAB PO SCH (11:11)
[2022-05-02] MEDS: valACYclovir 500 MG TAB PO SCH (11:14)
[2022-05-02] MEDS: BUTORPHANOL 2 MG/1 ML INJ IV PRN ×3 (12:21→21:26)
[2022-05-02] MEDS: OXYTOCIN DRIP 30 UNITS/500 ML BAG IV SCH (16:15)
[2022-05-02] MEDS: LACTATED RINGERS 1,000 ML IV SCH (17:54)
[2022-05-02] MEDS ORDERED: ePHEDrine SULFATE 50 MG/1 ML INJ IV PRN ×2 (23:44→23:46)
[2022-05-02] MEDS ORDERED: NALOXONE 0.4 MG/1 ML INJ IV PRN ×2 (23:44→23:46)
--- NOTE | 2022-05-02 23:48 | Anesthesia Consultation ---
Anesthesia Consult and Med Hx Date of service: 05/02/22 - Airway Anesthetic Teeth Evaluation: Good ROM Head & Neck: Adequate Mental/Hyoid Distance: Adequate Mallampati Class: Class II Intubation Access Assessment: Probably Good - Pulmonary Exam CTA: Yes - Cardiac Exam Cardiac Exam: RRR - Pre-Operative Health Status ASA Pre-Surgery Classification: ASA3 Proposed Anesthetic Plan: Epidural - Pulmonary Hx Smoking: No Hx Asthma: No Hx Respiratory Symptoms: No SOB: No COPD: No Home Oxygen Therapy: No Hx Pneumonia: No Hx Sleep Apnea: No - Cardiovascular System Hx Hypertension: No Hx Coronary Artery Disease: No Hx Heart Attack/AMI: No Hx Angina: No Hx Percutaneous Transluminal Coronary Angioplasty (PTCA): No Hx Cardia Arrhythmia: No Hx Pacemaker: No Hx Internal Defibrillator: No Hx Valvular Heart Disease: No Hx Heart Murmur: No Hx Peripheral Vascular Disease: No - Central Nervous System Hx Neuromuscular Disorder: No Hx Seizures: Yes (Epilespy) CVA: No Hx Back Pain: No Hx Psychiatric Problems: No - Gastrointestinal Hx Ulcer: No Hx Gastroesophageal Reflux Disease: No - Endocrine Hx Renal Disease: No Hx End Stage Renal Disease: No Hx Cirrhosis: No Hx Liver Disease: No Hx Insulin Dependent Diabetes: No Hx Non-Insulin Dependent Diabetes: No Hx Thyroid Disease: No Hx Hypothyroidism: No Hx Hyperthyroidism: No - Hematic Hx Anemia: Yes (Hospitalized with 2 blood trans and 2 iron trans. 01/2020) Hx Sickle Cell Disease: No - Other Systems Hx Alcohol Use: No Hx Substance Use: No Hx Cancer: No Hx Obesity: Yes
--- NOTE | 2022-05-02 23:49 | Anesthesia Day of Surgery ---
Anesthesia Day of Surgery - Day of Surgery Patient Examined: Yes Patient H&P Reviewed: Yes Patient is NPO: Yes Beta Blockers: No Cardiac Clearance: No Pulmonary Clearance: No Derick's Test: N/A
[2022-05-03] MEDS: fentaNYL-BUPIV 2 MCG/ML-0.125% 200 MCG/100 ML BAG EPIDURAL SCH ×3 (00:06→18:50)
--- NOTE | 2022-05-03 00:13 | Progress Note ---
Labor Epidural - Labor Epidural Start Time: 23:20 Stop Time: 23:28 Performed by:: GERI MOORE Procedure: Epidural Requested for Labor Pain. H&P and PT Chart reviewed and consent obtained. Time out performed and the procedure was explained, all questions answered. Patient was placed in a sitting position with monitors applied. The PTs back was prepped and draped in usual sterile fashion. The Skin was localized with 3 mL of 1% lidocaine at L3-L4. A 17-gauge Touhy epidural needle was advanced to DERICK with saline at 7 cm and no blood/CSF was noted via epidural needle. Epidural catheter was advanced to 12 cm. There was negative aspiration for blood and CSF in the catheter and negative response to a test dose of 3 ml 1.5% lidocaine w/ Epi and a sterile dressing was applied Patient tolerated the procedure well and there were no immediate complications noted.
[2022-05-03] MEDS: AMPICILLIN/NS 1 GM/50 ML 1 GM/50 ML BAG IV SCH ×4 (00:21→09:02)
[2022-05-03] MEDS: OXYTOCIN DRIP 30 UNITS/500 ML BAG IV SCH ×2 (08:53→09:33)
[2022-05-03] MEDS: valACYclovir 500 MG TAB PO SCH ×2 (09:02→09:04)
[2022-05-03] MEDS: PRENATAL VIT27-FE FUMARATE-FOLIC ACID VIT TAB PO SCH (09:04)
[2022-05-03] MEDS: LACTATED RINGERS 1,000 ML IV SCH (09:08)
--- NOTE | 2022-05-03 10:02 | Event Note ---
Date: 05/03/22 This is the beginning of day 3 of the patient's induction of labor. Her Cook catheter was removed yesterday with a cervical exam approximately 4 cm. The patient is grossly ruptured. Cervical exam consistent with 6 cm 80% effaced -1 station. IUPC and FSE were placed. Discussed the concerns of possible arrest disorder with the patient and the probability of proceeding with a delivery. Will reassess the patient's progress in 2 hours with adequate MVUs.
[2022-05-03] MEDS ORDERED: ePHEDrine SULFATE 50 MG/1 ML INJ ONE (12:18)
[2022-05-03] MEDS ORDERED: LIDOCAINE MPF (2%) 20 MG/1 ML VIAL 5 ML ONE (12:18)
[2022-05-03] MEDS ORDERED: ONDANSETRON 4 MG/2 ML INJ ONE (12:18)
[2022-05-03] MEDS ORDERED: PHENYLEPHRINE/NS 1,000 MCG/10 ML SYRINGE (OR USE) IV ONE (12:18)
[2022-05-03] MEDS ORDERED: ceFAZolin/Water 2 GM/20 ML 0 GM/0 ML SYRINGE IV ONE (12:19)
[2022-05-03] MEDS ORDERED: METOCLOPRAMIDE 10 MG/2 ML INJ ONE (12:19)
[2022-05-03] MEDS ORDERED: FAMOTIDINE 20 MG/2 ML INJ IV ONE ×2 (12:19→12:47)
[2022-05-03] MEDS ORDERED: BICITRA ORAL LIQD 30ML ONE (12:20)
[2022-05-03] MEDS ORDERED: miSOPROStol 200 MCG TAB ONE (12:42)
--- NOTE | 2022-05-03 12:42 | Event Note ---
Date: 05/03/22 Patient has not had any further cervical change. Patient has been counseled for a primary delivery.
--- NOTE | 2022-05-03 12:43 | Procedure Note ---
OB Delivery Note - Delivery Date of Delivery: 05/03/22 Surgeon: KEVAN ECHOLS Estimated blood loss: other (qbl 1250ml) - Section Preop diagnosis: arrest of dilation Postop diagnosis: same section procedure: section, primary low transverse Disposition: PACU Complications: none - A at 1 minute: 7 at 5 minutes: 9 Gender: Female (Weight 5 pounds 14 ounces)
--- NOTE | 2022-05-03 12:45 | Operative Report ---
Operative Report Operative Report: Date of surgery: May 03, 2022 Preoperative diagnosis: at 35+5 weeks; arrest of dilatation; morbid obesity; -induced hypertension; gestational diabetes Postoperative diagnosis: Same as above Procedure: Primary low transverse delivery Surgeon: Nataly Alvarez M.D. Anesthesia: Regional Estimated blood loss:Qbl 1250ml IV fluids: 1500 mL Urine output: 100 mL Findings: Liveborn female with Apgars of 7 and 9 weight 5 pounds 14 ounces Indications: 26-year-old G1, P0 at 35+5 weeks who was admitted for induction of labor secondary to morbid obesity, -induced hypertension and gestational diabetes the patient's intrapartum course was complicated by arrest of dilatation Procedure: The patient was taken to the operating room and given regional anesthesia without complication. She was prepped and draped in a normal sterile fashion. A Pfannenstiel skin incision was made down to layer the fascia which was nicked in the midline extended laterally with the Bovie cautery. The superior aspect of the rectus fascia was grasped with [place] clamps x2 and the rectus muscles off sharply. This was done in inferior fashion as well. The rectus muscle midline and peritoneum entered bluntly. An Kwasi retractor was then inserted. A bladder blade was placed. The vesicouterine peritoneum was then entered sharply with Metzenbaum scissors. A bladder flap was created digitally. A low transverse uterine incision was then made and extended digitally. There was clear fluid upon entry into the uterine cavity. The head was delivered through the incision with fundal pressure. The cord was clamped and cut x2 and was passed off to pediatrics. The placenta was then manually extracted. The uterus was then exteriorized and cleared of clots and debris. The uterine incision was then closed in a running locked fashion with 0 Vicryl additional imbricating stitch was applied for 2 layer closure. The posterior cul-de-sac was then copiously irrigated. The uterus was replaced back into the abdomen and pelvis were the gutters were then irrigated. The Kwasi retractor was then removed. The peritoneum was then reapproximated with 3-0 Vicryl incorporating the rectus muscle. The fascia was then closed with 0 Vicryl in a running fashion. The skin was then reapproximated with 3-0 Monocryl on a Robert needle subcuticular fashion. Steri-Strips to place across the incision and a Crede procedures performed at the end of the surgery. A pressure dressing was applied to the incision. The surgery productive of a liveborn female infant with Apgars of 7 and 9 weight 5 pounds 14 ounces. The patient was taken to the recovery room in stable condition. All sponge laps and needle counts correct x2.
[2022-05-03] MEDS ORDERED: BICITRA ORAL LIQD 30ML PO ONE (12:47)
[2022-05-03] MEDS ORDERED: METOCLOPRAMIDE 10 MG/2 ML INJ IV ONE (12:47)
[2022-05-03] MEDS ORDERED: LACTATED RINGERS 1,000 ML IV SCH (13:00)
[2022-05-03] MEDS ORDERED: LANOLIN/ZINC/DIMETHICONE (LANSINOH) 7 GM TP PRN (13:00)
[2022-05-03] MEDS ORDERED: IBUPROFEN 600 MG TAB PO PRN (13:00)
[2022-05-03] MEDS ORDERED: MORPHINE 4 MG/1 ML INJ IV PRN ×2 (13:00→14:24)
[2022-05-03] MEDS ORDERED: WITCH HAZEL/ GLYCERIN PAD TP PRN (13:00)
[2022-05-03] MEDS ORDERED: NALOXONE 0.4 MG/1 ML INJ IV PRN ×2 (13:00→14:24)
[2022-05-03] MEDS ORDERED: OXYTOCIN DRIP 30 UNITS/500 ML BAG IV SCH ×2 (13:00)
[2022-05-03] MEDS ORDERED: KETOROLAC 30 MG/1 ML INJ IV PRN (13:00)
[2022-05-03] MEDS ORDERED: ACETAMINOPHEN 325 MG TAB PO PRN (13:00)
[2022-05-03] MEDS ORDERED: ceFAZolin 1 GM VIAL ONE (13:24)
[2022-05-03] MEDS ORDERED: ONDANSETRON 4 MG/2 ML INJ IV PRN (14:24)
[2022-05-03] MEDS ORDERED: HYDROmorphone 1 MG/1 ML INJ IV PRN (14:24)
[2022-05-03] MEDS ORDERED: PROMETHAZINE 25 MG TAB PO PRN (14:24)
[2022-05-03] MEDS ORDERED: PROMETHAZINE 25 MG RECT SUPP PR PRN (14:24)
[2022-05-03] MEDS: MAGNESIUM SULFATE 40GM/1000ML 40 GM/1,000 ML BAG IV SCH (14:38)
[2022-05-03] MEDS: hydrALAZINE 20 MG/1 ML INJ IV PRN ×2 (15:39→17:29)
[2022-05-03] MEDS: NIFEdipine XL 90 MG TAB PO SCH (20:54)
[2022-05-04 00:48] LABS: Hematocrit 31.6 % (30.3-42.9); Hemoglobin 10.1 gm/dl (10.1-14.3)
--- NOTE | 2022-05-04 03:34 | Post Anesthesia Evaluation ---
- Post Anesthesia Evaluation Patient Participated: Yes Airway Patent: Yes Stable Respiratory Function: Yes Nausea/Vomiting: No Temp > 96.8F: Yes Pain Manageable: Yes Adequeate Hydration: Yes Anesthesia Complications: No Block Receding Appropriately: Yes Patient on Ventilator: No
[2022-05-04] MEDS: fentaNYL-BUPIV 2 MCG/ML-0.125% 200 MCG/100 ML BAG EPIDURAL SCH (05:37)
[2022-05-04] MEDS: MAGNESIUM SULFATE 40GM/1000ML 40 GM/1,000 ML BAG IV SCH (07:13)
[2022-05-04] MEDS: metFORMIN 850 MG TAB PO SCH (08:20)
[2022-05-04] MEDS: LACTATED RINGERS 1,000 ML IV SCH (09:38)
[2022-05-04] MEDS: NIFEdipine XL 90 MG TAB PO SCH (09:38)
[2022-05-04] MEDS: PRENATAL VIT27-FE FUMARATE-FOLIC ACID VIT TAB PO SCH (09:38)
[2022-05-04] MEDS: valACYclovir 500 MG TAB PO SCH (09:39)
[2022-05-04] MEDS: HYDROmorphone 1 MG/1 ML INJ IV PRN ×2 (09:55→15:02)
--- NOTE | 2022-05-04 12:37 | Progress Note ---
Assessment and Plan - Patient Problems (1) Hypertension affecting Current Visit: Yes Status: Acute Plan to address problem: Patient is demonstrating clinical improvement Transfer to mother-baby unit once magnesium sulfate is completed (2) Morbid obesity Current Visit: Yes Status: Acute (3) Gestational diabetes Current Visit: Yes Status: Acute Subjective - Subjective Date of service: 05/04/22 Principal diagnosis: Hypertension affecting Interval history: Patient is postop day #1 status post a primary delivery for arrest of dilatation. Her intrapartum course was complicated by elevated blood pressures for which the patient is receiving 24 hours of magnesium sulfate therapy. She reports that her pain is well controlled. Has had significant improvement in blood pressures since incorporating Procardia XL Patient reports: appetite normal, pain well controlled [place]: in NICU Objective - Vital Signs Latest vital signs: Vital Signs Temp Pulse Resp BP Pulse Ox Pulse Ox 05/04/22 12:34 92 H 97 05/04/22 12:29 90 96 05/04/22 12:24 91 H 96 05/04/22 12:20 92 H 94 05/04/22 12:19 89 97 05/04/22 12:14 92 H 96 05/04/22 12:13 94 H 94 05/04/22 12:09 91 H 98 05/04/22 12:04 89 97 05/04/22 11:59 91 H 95 05/04/22 11:54 94 H 95 05/04/22 11:49 93 H 96 05/04/22 11:44 94 H 98 05/04/22 11:43 93 H 127/71 05/04/22 11:39 98 H 97 05/04/22 11:34 92 H 97 05/04/22 11:29 91 H 97 05/04/22 11:26 94 H 94 05/04/22 11:24 91 H 96 05/04/22 11:19 90 98 05/04/22 11:14 97 H 95 05/04/22 11:11 95 H 94 05/04/22 11:09 94 H 95 05/04/22 11:04 93 H 96 05/04/22 10:59 93 H 97 05/04/22 10:54 95 H 96 05/04/22 10:49 98 H 96 05/04/22 10:44 94 H 99 05/04/22 10:43 98 H 138/84 05/04/22 10:39 100 H 97 05/04/22 10:34 98 H 98 05/04/22 10:29 96 H 97 05/04/22 10:24 97 H 97 05/04/22 10:19 98 H 98 05/04/22 10:14 95 H 97 05/04/22 10:09 95 H 98 05/04/22 10:04 95 H 97 05/04/22 09:59 94 H 98 05/04/22 09:54 99 H 98 05/04/22 09:49 97 H 99 05/04/22 09:44 98 H 99 05/04/22 09:42 98 H 143/79 05/04/22 09:39 98 H 137/69 99 05/04/22 09:38 103 H 137/69 05/04/22 09:34 98 H 99 05/04/22 09:29 95 H 96 05/04/22 09:27 100 H 137/69 05/04/22 09:24 103 H 96 05/04/22 09:19 91 H 97 05/04/22 09:14 94 H 97 05/04/22 09:12 92 H 141/69 05/04/22 09:09 95 H 96 05/04/22 09:04 95 H 98 05/04/22 08:59 99 H 98 05/04/22 08:57 96 H 143/75 05/04/22 08:54 98 H 97 05/04/22 08:49 94 H 100 05/04/22 08:44 95 H 98 05/04/22 08:42 96 H 138/77 05/04/22 08:39 93 H 96 05/04/22 08:34 94 H 97 05/04/22 08:29 98 H 98 05/04/22 08:28 96 H 145/82 05/04/22 08:24 103 H 99 05/04/22 08:19 99 H 98 05/04/22 08:14 105 H 97 05/04/22 08:12 95 H 127/66 05/04/22 08:09 99 H 97 05/04/22 08:04 100 H 97 05/04/22 07:59 101 H 97 05/04/22 07:57 101 H 126/67 05/04/22 07:54 96 H 97 05/04/22 07:49 97 H 98 05/04/22 07:44 98 H 96 05/04/22 07:42 95 H 136/79 05/04/22 07:39 97 H 98 05/04/22 07:37 20 05/04/22 07:34 98 H 97 05/04/22 07:30 98.2 F 20 100 05/04/22 07:29 100 H 98 05/04/22 07:27 97 H 128/71 05/04/22 07:24 100 H 98 05/04/22 07:19 103 H 98 05/04/22 07:16 105 H 94 05/04/22 07:14 104 H 96 05/04/22 07:12 101 H 127/67 05/04/22 07:09 101 H 98 05/04/22 07:04 104 H 98 05/04/22 06:59 107 H 98 05/04/22 06:57 102 H 128/66 05/04/22 06:54 102 H 96 05/04/22 06:49 98 H 96 05/04/22 06:44 100 H 98 05/04/22 06:42 100 H 123/69 05/04/22 06:39 102 H 95 05/04/22 06:34 105 H 98 05/04/22 06:29 101 H 96 05/04/22 06:27 99 H 126/67 05/04/22 06:24 100 H 96 05/04/22 06:19 101 H 97 05/04/22 06:14 101 H 97 05/04/22 06:12 99 H 129/71 05/04/22 06:09 100 H 98 05/04/22 06:04 104 H 98 05/04/22 05:59 101 H 100 05/04/22 05:57 100 H 132/76 05/04/22 05:54 98 H 100 05/04/22 05:49 98 H 100 05/04/22 05:44 98 H 100 05/04/22 05:42 105 H 138/76 05/04/22 05:39 100 H 100 05/04/22 05:34 98 H 100 05/04/22 05:29 98 H 100 05/04/22 05:27 96 H 134/75 05/04/22 05:24 96 H 100 05/04/22 05:19 101 H 100 05/04/22 05:14 99 H 100 09/05/22 05:12 100 H 132/74 05/04/22 05:09 101 H 100 05/04/22 05:04 104 H 100 05/04/22 04:59 101 H 100 05/04/22 04:57 98 H 127/70 05/04/22 04:54 97 H 100 05/04/22 04:52 18 05/04/22 04:49 98 H 100 05/04/22 04:44 97 H 100 05/04/22 04:42 99 H 137/79 05/04/22 04:39 103 H 100 05/04/22 04:34 99 H 98 05/04/22 04:29 101 H 97 05/04/22 04:27 100 H 129/71 05/04/22 04:24 102 H 97 05/04/22 04:19 99 H 97 05/04/22 04:14 101 H 98 05/04/22 04:12 96 H 131/72 05/04/22 04:09 103 H 98 05/04/22 04:04 106 H 100 05/04/22 03:59 101 H 99 05/04/22 03:57 103 H 134/71 05/04/22 03:54 94 H 96 05/04/22 03:49 96 H 96 05/04/22 03:44 96 H 96 05/04/22 03:42 101 H 130/70 05/04/22 03:39 91 H 96 05/04/22 03:34 96 H 96 05/04/22 03:29 96 H 96 05/04/22 03:27 95 H 131/68 05/04/22 03:24 96 H 97 05/04/22 03:19 104 H 97 05/04/22 03:14 96 H 96 05/04/22 03:12 96 H 143/73 05/04/22 03:09 93 H 97 05/04/22 03:04 94 H 98 05/04/22 02:59 91 H 98 05/04/22 02:57 98 H 142/71 05/04/22 02:54 96 H 97 05/04/22 02:49 95 H 96 05/04/22 02:44 95 H 97 05/04/22 02:42 98 H 139/66 05/04/22 02:39 97 H 97 05/04/22 02:34 100 H 97 05/04/22 02:29 98 H 97 05/04/22 02:27 96 H 134/67 05/04/22 02:26 96 H 94 05/04/22 02:24 99 H 98 05/04/22 02:21 111 H 84 05/04/22 02:19 105 H 97 05/04/22 02:15 109 H 90 05/04/22 02:14 102 H 98 05/04/22 02:12 99 H 136/72 05/04/22 02:09 102 H 97 05/04/22 02:04 95 H 97 05/04/22 01:59 95 H 97 05/04/22 01:57 100 H 137/70 05/04/22 01:54 95 H 97 05/04/22 01:49 96 H 97 05/04/22 01:44 104 H 97 05/04/22 01:42 101 H 137/71 05/04/22 01:39 95 H 97 05/04/22 01:34 95 H 96 05/04/22 01:29 94 H 97 05/04/22 01:27 97 H 142/77 05/04/22 01:24 96 H 97 05/04/22 01:19 95 H 97 05/04/22 01:14 97 H 97 05/04/22 01:12 111 H 136/75 05/04/22 01:09 95 H 96 05/04/22 01:04 109 H 97 05/04/22 00:59 103 H 97 05/04/22 00:57 106 H 142/81 05/04/22 00:54 98 H 96 05/04/22 00:49 98 H 96 05/04/22 00:44 103 H 97 05/04/22 00:42 100 H 144/75 05/04/22 00:39 101 H 97 05/04/22 00:34 95 H 96 05/04/22 00:29 98 H 98 05/04/22 00:27 96 H 151/78 05/04/22 00:24 105 H 98 05/04/22 00:19 100 H 97 05/04/22 00:14 96 H 98 05/04/22 00:12 96 H 144/72 05/04/22 00:09 98 H 97 05/04/22 00:04 98 H 97 05/03/22 23:59 100 H 98 05/03/22 23:57 94 H 151/74 05/03/22 23:54 98 H 98 05/03/22 23:49 106 H 99 05/03/22 23:44 99 H 99 05/03/22 23:42 100 H 148/77 05/03/22 23:39 104 H 99 05/03/22 23:34 102 H 99 05/03/22 23:29 105 H 98 05/03/22 23:27 100 H 148/76 05/03/22 23:24 100 H 99 05/03/22 23:19 101 H 98 05/03/22 23:14 103 H 99 05/03/22 23:12 101 H 150/79 05/03/22 23:09 102 H 99 05/03/22 23:04 104 H 99 05/03/22 22:59 102 H 99 05/03/22 22:57 104 H 157/83 05/03/22 22:54 103 H 99 05/03/22 22:49 102 H 98 05/03/22 22:44 105 H 98 05/03/22 22:42 104 H 167/87 05/03/22 22:39 103 H 99 05/03/22 22:35 110 H 163/83 05/03/22 22:34 111 H 163/83 98 05/03/22 22:33 103 H 156/81 05/03/22 22:29 105 H 100 05/03/22 22:27 107 H 156/81 05/03/22 22:24 105 H 99 05/03/22 22:19 108 H 99 05/03/22 22:14 99 H 97 05/03/22 22:12 104 H 150/74 05/03/22 22:09 102 H 99 05/03/22 22:04 101 H 98 05/03/22 21:59 105 H 99 05/03/22 21:57 101 H 150/75 05/03/22 21:54 105 H 99 05/03/22 21:49 104 H 99 05/03/22 21:44 108 H 98 05/03/22 21:42 106 H 148/73 05/03/22 21:39 102 H 98 05/03/22 21:34 109 H 98 05/03/22 21:29 110 H 99 05/03/22 21:27 100 H 154/76 05/03/22 21:24 103 H 98 05/03/22 21:19 109 H 99 05/03/22 21:14 115 H 99 05/03/22 21:12 107 H 154/76 05/03/22 21:09 123 H 99 05/03/22 21:04 105 H 98 05/03/22 20:59 107 H 98 05/03/22 20:58 102 H 151/73 05/03/22 20:54 116 H 97 05/03/22 20:49 105 H 99 05/03/22 20:44 108 H 98 05/03/22 20:42 108 H 167/83 05/03/22 20:39 103 H 99 05/03/22 20:34 105 H 98 05/03/22 20:29 105 H 99 05/03/22 20:27 105 H 171/86 05/03/22 20:24 105 H 98 05/03/22 20:19 107 H 98 05/03/22 20:14 105 H 98 05/03/22 20:12 104 H 162/82 05/03/22 20:09 102 H 98 05/03/22 20:04 104 H 99 05/03/22 19:59 107 H 99 05/03/22 19:57 105 H 167/85 05/03/22 19:54 104 H 99 05/03/22 19:49 104 H 100 100 05/03/22 19:44 104 H 99 05/03/22 19:42 104 H 152/79 05/03/22 19:39 110 H 100 05/03/22 19:34 112 H 99 05/03/22 19:29 96 H 99 05/03/22 19:27 103 H 172/75 05/03/22 19:24 95 H 99 05/03/22 19:19 104 H 98 05/03/22 19:14 99 H 99 05/03/22 19:12 98 H 182/84 05/03/22 19:09 99 H 99 05/03/22 19:04 107 H 99 05/03/22 18:59 106 H 99 05/03/22 18:57 103 H 176/80 05/03/22 18:54 94 H 98 05/03/22 18:49 101 H 99 05/03/22 18:44 98 H 99 05/03/22 18:42 105 H 175/79 05/03/22 18:39 104 H 99 05/03/22 18:34 103 H 98 05/03/22 18:29 103 H 99 05/03/22 18:27 100 H 166/73 05/03/22 18:24 104 H 99 05/03/22 18:19 96 H 100 05/03/22 18:14 103 H 99 05/03/22 18:12 104 H 171/79 05/03/22 18:09 101 H 98 05/03/22 18:04 107 H 99 05/03/22 17:59 103 H 99 05/03/22 17:57 103 H 171/81 05/03/22 17:54 103 H 98 05/03/22 17:49 107 H 98 05/03/22 17:44 107 H 98 05/03/22 17:43 100 H 163/79 05/03/22 17:39 113 H 99 05/03/22 17:34 95 H 98 05/03/22 17:29 98 H 176/86 98 05/03/22 17:28 92 H 176/86 05/03/22 17:24 94 H 98 05/03/22 17:19 95 H 98 05/03/22 17:14 98 H 99 05/03/22 17:09 92 H 98 05/03/22 16:15 99 F 99 H 19 180/84 99 05/03/22 15:57 101 H 14 144/77 99 05/03/22 15:41 91 H 22 174/94 98 05/03/22 15:39 174/94 05/03/22 15:25 79 18 182/100 99 05/03/22 15:10 84 19 175/91 98 05/03/22 14:55 86 14 159/94 98 05/03/22 14:40 81 17 157/95 99 05/03/22 14:25 83 18 159/99 100 05/03/22 14:20 86 14 153/94 99 05/03/22 14:16 99 F 86 13 133/82 98 Intake and Output 05/03/22 05/04/22 05/04/22 22:59 06:59 14:59 Intake Total 1200 829.167 Output Total 663 763 0179 Balance 800 -650 -1720.833 Intake: IV 1200 829.167 Lactated Ringers 1,000 ml 1000 @ 125 mls/hr IV DIRECT SARAH Rx#:[id number] MAGNESIUM SULFATE 40GM/ 829.167 1000ML 40 gm In 1,000 ml @ 2 GM/HR 50 mls/hr IV DIRECT SARAH Rx#:[id number] Output: Urine 820 840 8162 Indwelling Catheter 330 799 9286 Other: Total, Output Amount 200 350 200 Estimated Blood Loss 1,259 - Labs Labs: Abnormal lab results 05/03/22 05/04/22 05/04/22 Range/Units 19:42 07:41 11:50 POC Glucose 133 H (70-105) mg/dL Magnesium 3.40 H 4.40 H (1.7-2.3) mg/dL
[2022-05-04] MEDS: oxyCODONE /ACETAMINOPHEN 5-325MG TAB PO PRN (21:05)
[2022-05-05] MEDS: oxyCODONE /ACETAMINOPHEN 5-325MG TAB PO PRN ×3 (03:28→22:53)
--- NOTE | 2022-05-05 07:50 | Progress Note ---
Assessment and Plan A: POD#2 s/p primary at 35 wks Preeclampsia with Severe Features s/p magnesium during induction and for 24 hours after delivery Intrapoperative hemorrhage Morbid Obesity Epilepsy Gestational Diabetes A1 H/o Anemia with blood transfusion Genital Herpes without lesion or prodrome GBS positive status P: BP remains above desired range. Change Procardia XL to 60 mg BID Begin bowel regimen Remove bandage after shower Closely monitor clinical status Subjective - Subjective Date of service: 05/05/22 Principal diagnosis: Preeclampsia with severe features, Gestational DM, Morbid Obesity Interval history: Pt without complaints presently. Tolerating regular diet. Pain well-controlled. Ambulating to bathroom. Patient reports: appetite normal, voiding normally, pain well controlled, flatus, ambulating normally, no bowel movement : in NICU, bottle feeding Objective - Vital Signs Latest vital signs: Vital Signs Temp Pulse Resp BP BP Pulse Ox Pulse Ox 05/05/22 05:22 98.3 F 96 H 20 145/75 99 05/05/22 04:28 18 05/05/22 03:28 20 05/04/22 23:50 98.2 F 92 H 20 131/62 100 05/04/22 22:05 18 05/04/22 21:08 107 H 154/95 05/04/22 21:05 20 05/04/22 20:00 100 05/04/22 16:39 100 05/04/22 16:15 98.5 F 97 H 18 142/84 98 05/04/22 15:09 111 H 98 05/04/22 15:04 98 H 98 05/04/22 14:59 95 H 99 05/04/22 14:54 97 H 98 05/04/22 14:49 95 H 98 05/04/22 14:44 98 H 96 05/04/22 14:43 95 H 126/68 05/04/22 14:41 93 H 121/69 05/04/22 14:39 93 H 98 05/04/22 14:34 92 H 98 05/04/22 14:29 89 98 05/04/22 14:24 93 H 96 05/04/22 14:19 92 H 96 05/04/22 14:14 90 97 05/04/22 14:09 89 96 05/04/22 14:04 92 H 96 05/04/22 13:59 94 H 97 05/04/22 13:54 93 H 97 05/04/22 13:49 96 H 98 05/04/22 13:44 104 H 98 05/04/22 13:39 92 H 98 05/04/22 13:34 100 H 98 05/04/22 13:29 98 H 98 05/04/22 13:24 94 H 99 05/04/22 13:19 95 H 98 05/04/22 13:14 92 H 98 05/04/22 13:09 91 H 97 05/04/22 13:04 93 H 96 05/04/22 12:59 91 H 98 05/04/22 12:54 92 H 97 05/04/22 12:49 92 H 98 05/04/22 12:44 91 H 98 05/04/22 12:43 90 129/70 05/04/22 12:39 94 H 98 05/04/22 12:34 92 H 97 05/04/22 12:29 90 96 05/04/22 12:24 91 H 96 05/04/22 12:20 92 H 94 05/04/22 12:19 89 97 05/04/22 12:14 92 H 96 05/04/22 12:13 94 H 94 05/04/22 12:09 91 H 98 05/04/22 12:04 89 97 05/04/22 11:59 91 H 95 05/04/22 11:54 94 H 95 05/04/22 11:49 93 H 96 05/04/22 11:44 94 H 98 05/04/22 11:43 93 H 127/71 05/04/22 11:39 98 H 97 05/04/22 11:34 92 H 97 05/04/22 11:30 98.3 F 20 05/04/22 11:29 91 H 97 05/04/22 11:26 94 H 94 05/04/22 11:24 91 H 96 05/04/22 11:19 90 98 05/04/22 11:14 97 H 95 05/04/22 11:11 95 H 94 05/04/22 11:09 94 H 95 05/04/22 11:04 93 H 96 05/04/22 10:59 93 H 97 05/04/22 10:54 95 H 96 05/04/22 10:49 98 H 96 05/04/22 10:44 94 H 99 05/04/22 10:43 98 H 138/84 05/04/22 10:39 100 H 97 05/04/22 10:34 98 H 98 05/04/22 10:29 96 H 97 05/04/22 10:24 97 H 97 05/04/22 10:19 98 H 98 05/04/22 10:14 95 H 97 05/04/22 10:09 95 H 98 05/04/22 10:04 95 H 97 05/04/22 09:59 94 H 98 05/04/22 09:54 99 H 98 05/04/22 09:49 97 H 99 05/04/22 09:44 98 H 99 05/04/22 09:42 98 H 143/79 05/04/22 09:39 98 H 137/69 99 05/04/22 09:38 103 H 137/69 05/04/22 09:34 98 H 99 05/04/22 09:29 95 H 96 05/04/22 09:27 100 H 137/69 05/04/22 09:24 103 H 96 05/04/22 09:19 91 H 97 05/04/22 09:14 94 H 97 05/04/22 09:12 92 H 141/69 05/04/22 09:09 95 H 96 05/04/22 09:04 95 H 98 05/04/22 08:59 99 H 98 05/04/22 08:57 96 H 143/75 05/04/22 08:54 98 H 97 05/04/22 08:49 94 H 100 05/04/22 08:44 95 H 98 05/04/22 08:42 96 H 138/77 05/04/22 08:39 93 H 96 05/04/22 08:34 94 H 97 05/04/22 08:29 98 H 98 05/04/22 08:28 96 H 145/82 05/04/22 08:24 103 H 99 05/04/22 08:19 99 H 98 05/04/22 08:14 105 H 97 05/04/22 08:12 95 H 127/66 05/04/22 08:09 99 H 97 05/04/22 08:04 100 H 97 05/04/22 07:59 101 H 97 05/04/22 07:57 101 H 126/67 05/04/22 07:54 96 H 97 05/04/22 07:49 97 H 98 Intake and Output 05/04/22 05/05/22 05/05/22 22:59 06:59 14:59 Intake Total 600 Balance 600 Intake: Oral 240 Intake, Free Water 360 Other: Total, Intake Amount 240 # Voids Void 1 - Exam Breasts: Present: deferred Abdomen: Present: soft (obese ) Uterus: Present: fundal height below umbilicus Extremities: Present: edema (trace ) Incision: Present: dressed - Labs Labs: Abnormal lab results 05/04/22 05/04/22 Range/Units 07:41 11:50 POC Glucose 133 H (70-105) mg/dL Magnesium 4.40 H (1.7-2.3) mg/dL
[2022-05-05] MEDS ORDERED: IBUPROFEN 600 MG TAB PO SCH (08:00)
[2022-05-05] MEDS: NIFEdipine XL 60 MG TAB PO SCH ×2 (10:18→22:53)
[2022-05-05] MEDS: IBUPROFEN 800 MG TAB PO SCH (10:18)
[2022-05-05] MEDS: PRENATAL VIT27-FE FUMARATE-FOLIC ACID VIT TAB PO SCH (10:18)
[2022-05-05] MEDS: LACTULOSE 20 GM/30 ML ORAL LIQD PO SCH ×2 (10:18→22:53)
[2022-05-06] MEDS: oxyCODONE /ACETAMINOPHEN 5-325MG TAB PO PRN (06:13)
--- NOTE | 2022-05-06 07:37 | Progress Note ---
Assessment and Plan - Patient Problems (1) Hypertension affecting Current Visit: Yes Status: Acute Plan to address problem: Patient doing well Discharge home (2) Morbid obesity Current Visit: Yes Status: Acute (3) Gestational diabetes Current Visit: Yes Status: Acute Subjective - Subjective Date of service: 05/06/22 Principal diagnosis: Preeclampsia with severe features, Gestational DM, Morbid Obesity Interval history: Patient is postop day #3 status post a primary delivery for arrest of dilatation. She reports doing well. She is tolerating a regular diet and her pain is well controlled. Patient reports: appetite normal, voiding normally, pain well controlled [place]: in NICU Objective - Vital Signs Latest vital signs: Vital Signs Temp Pulse Resp BP Pulse Ox Pulse Ox 05/06/22 04:50 101 H 155/83 97 05/06/22 00:26 98.2 F 102 H 20 151/73 98 05/05/22 22:55 98 05/05/22 21:19 114 H 20 154/79 99 05/05/22 16:22 99.2 F 115 H 20 146/76 93 05/05/22 12:10 98.0 F 107 H 20 150/74 97 05/05/22 08:58 98 05/05/22 07:55 97.8 F 112 H 20 147/78 97 Intake and Output 05/05/22 05/06/22 05/06/22 22:59 06:59 14:59 Intake Total 840 240 Balance 840 240 Intake: Oral 480 240 Intake, Free Water 360 Other: Total, Intake Amount 240 120 # Voids Void 1 1 - Exam Abdomen: Present: normal appearance, soft
--- NOTE | 2022-05-06 07:38 | Discharge Summary ---
Providers - Providers Date of Admission: 04/30/22 16:16 Date of discharge: 05/06/22 Attending physician: MICHELLE QUINN 05/05/22 18:42 psychiatry consult [Consult to Mental Health] [CONS] Routine Reason For Exam: [place] score 11 Primary care physician: MICHELLE QUINN Hospitalization Reason for admission: induction of labor Delivery: Procedure: section, primary low transverse Discharge diagnosis: delivery Hospital course: The patient was a induction of labor secondary to worsening hypertension and diabetes. The patient underwent an induction that was complicated by an arrest of dilatation. She underwent a successful primary delivery and received magnesium sulfate therapy postoperatively. The remainder of her postoperative course was uneventful. Condition at discharge: Good Disposition: 01 HOME / SELF CARE / HOMELESS - Discharge Diagnoses (1) Hypertension affecting Status: Acute (2) Morbid obesity Status: Acute (3) Gestational diabetes Status: Acute Plan - Discharge Medications Prescriptions: Ibuprofen [Motrin] 800 mg PO Q8HR PRN #60 tablet PRN Reason: Pain , Severe (7-10) oxyCODONE /ACETAMINOPHEN [Percocet 5/325] 1 tab PO Q6HR PRN #30 tablet PRN Reason: Pain NIFEdipine XL [Procardia Xl] 60 mg PO Q12HR #60 tab - Provider Discharge Summary Activity: no sex for 6 weeks, no heavy lifting 4 weeks, no strenuous exercise Diet: routine Instructions: routine Additional instructions: [] Smoking cessation referral if applicable(refer to patient education folder for contact #) [] Refer to [facility] Booklet Call your doctor immediately for: * Fever > 100.5 * Heavy vaginal bleeding ( >1 pad per hour) * Severe persistent headache * Shortness of breath * Reddened, hot, painful area to leg or breast * Drainage or odor from incision. * Keep incision clean and dry at all times and follow doctor's instructions regarding bathing/showering Schedule postoperative visit in 2 weeks - Follow up plan
[2022-05-06] MEDS ORDERED: SERTRALINE 25 MG TAB PO SCH (10:00)
[2022-05-06] MEDS: NIFEdipine XL 60 MG TAB PO SCH (10:30)
[2022-05-06] MEDS: PRENATAL VIT27-FE FUMARATE-FOLIC ACID VIT TAB PO SCH (10:30)
[2022-05-06] MEDS: LACTULOSE 20 GM/30 ML ORAL LIQD PO SCH (10:30)
[2022-05-06] MEDS: IBUPROFEN 800 MG TAB PO SCH (10:32)
--- NOTE | 2022-05-06 11:19 | Consultation ---
History of Present Illness - Reason for Consult Consult date: 05/06/22 Reason for consult: mental health evaluation - Chief Complaint Chief complaint: sent from [facility] clinic for delivery - History of Present Psychiatric Illness The patient is a 26 year old female with no prior psychiatric history; consulted for mental health evaluation. The patient was seen today. She is calm, alert and oriented x4. She states she feels sad and overwhelmed because she will be discharged without her baby. The patient denies depression or feeling excessively anxious. She is naive to psychotropic meds." She denies any current suicidal/homicidal ideation and denies hallucinations. PAST PSYCHIATRIC HISTORY: Diagnoses: Denies Suicide attempts or Self-harm behavior: Denies Prior psychiatric hospitalizations: Denies Substance Abuse history: Denies Previous psychiatric medications tried: Denies Outpatient treatment: No PAST MEDICAL HISTORY: Family Psychiatric History: None reported SOCIAL HISTORY Marital Status: Living Arrangements: Lives with Employment Status: employed Access to guns/weapons: Denies Education:some 11th grade History of Abuse: Denies Legal History: Unknown REVIEW OF SYSTEMS Constitutional: Negative for weight loss ENT: Negative for stridor Respiratory: Negative for cough or hemoptysis All other systems reviewed and are negative MENTAL STATUS General Appearance and Behavior: age appropriate, good eye contact, cooperative, Cooperation: Cooperative Psychomotor Behavior: within normal limits Mood: "sad" Affect and affective range: Congruent with stated mood Thought Process: goal directed Thought Content: Reality oriented Speech: Normal volume and Regular rate and rhythm Suicidal Ideation: Denies Homicidal Ideation: Denies HI Hallucinations: Denies Impulse Control: intact Insight and Judgment: Limited Memory: Limited Attention: Distracted Orientation: alert and oriented x4 Assessment Treatment Plan Continue home medications The patient is to get first dose of meds prior to leaving. Benefits and possible SE were explained to patient. She verbalizes understanding. Risks, benefits and alternatives of medications discussed with the patient, questions answered and consent obtained from patient. PSYCHOTHERAPY: Supportive psychotherapy provided MEDICAL: Per primary team DELIRIUM PRECAUTIONS: Please re-orient patient frequently, keep lights on during the day, and minimize benzodiazepines and opiates as these medications could worsen patient's confusion. LEARNING SUPPORT SERVICES DIRECTOR: Defer to primary DISPOSITION: Do not recommend acute inpatient psychiatric hospitalization at this time. Bag Worker will provide patient with psychiatric outpatient resources. FOLLOW-UP: Will sign off. Thank you for the consult. Please contact with any questions and/or concerns Case discussed with Dr. Fowler who agrees with current disposition Medications and Allergies Medications and Allergies Allergies Allergy/AdvReac Type Severity Reaction Status Date / Time No Known Allergies Allergy Verified 11/05/15 17:35 Home Medications Medication Instructions Recorded Confirmed Last Taken Type Acyclovir [Zovirax Tab] 800 mg PO 5XD #50 tab 03/26/15 05/04/22 02/27/22 09:30 Rx Ibuprofen [Motrin] 600 mg PO Q8H PRN #20 tablet 07/25/18 05/04/22 02/27/22 09:30 Rx Ibuprofen [Motrin] 800 mg PO Q8HR PRN #60 tablet 05/06/22 Unknown Rx NIFEdipine XL [Procardia Xl] 60 mg PO Q12HR #60 tab 05/06/22 Unknown Rx oxyCODONE /ACETAMINOPHEN [Percocet 1 tab PO Q6HR PRN #30 tablet 05/06/22 Unknown Rx 5/325] Active Meds: Active Medications Acetaminophen (Acetaminophen 325 Mg Tab) 650 mg PO Q4H PRN PRN Reason: Fever >100.5/JENKINS Hydralazine HCl (Hydralazine 20 Mg/1 Ml Inj) 5 mg IV Q30MIN PRN PRN Reason: Hypertension Last Admin: 05/03/22 17:29 Dose: 5 mg Ibuprofen (Ibuprofen 800 Mg Tab) 800 mg PO Q6H [facility] Last Admin: 05/06/22 10:32 Dose: 800 mg Ketorolac Tromethamine (Ketorolac 30 Mg/1 Ml Inj) 30 mg IV Q6H PRN PRN Reason: Pain, Moderate (4-6) Stop: 05/08/22 12:59 Last Admin: 05/04/22 10:40 Dose: 30 mg Lactulose (Lactulose 20 Gm/30 Ml Oral Liqd) 20 gm PO Q12H [facility] Last Admin: 05/06/22 10:30 Dose: 20 gm Multi-Ingredient Ointment (Lanolin/Zinc/Dimethicone (Lansinoh) 7 Gm) 1 applic TP PRN PRN PRN Reason: dryness/cracking Multivitamins/Iron/Calcium ( Tev68-Mt Fumarate-Folic Acid Vit Tab) 1 each PO QDAY [facility] Last Admin: 05/06/22 10:30 Dose: 1 each Nifedipine (Nifedipine Xl 60 Mg Tab) 60 mg PO Q12HR [facility] Last Admin: 05/06/22 10:30 Dose: 60 mg Ondansetron HCl (Ondansetron 4 Mg/2 Ml Inj) 4 mg IV Q8H PRN PRN Reason: Nausea And Vomiting Oxycodone/Acetaminophen (Oxycodone /Acetaminophen 5-325mg Tab) 2 tab PO Q4H PRN PRN Reason: Pain, Moderate (4-6) Last Admin: 05/06/22 06:13 Dose: 2 tab Promethazine HCl (Promethazine 25 Mg Tab) 25 mg PO Q6H PRN PRN Reason: Nausea And Vomiting Sertraline HCl (Sertraline 25 Mg Tab) 25 mg PO QDAY [facility] Last Admin: 05/06/22 10:50 Dose: 25 mg Simethicone (Simethicone 80 Mg Chew Tab) 80 mg PO Q6H PRN PRN Reason: Gas pain Witch Funmi/Glycerin (Witch Funmi/ Glycerin Pad) 1 each TP PRN PRN PRN Reason: Hemorrhoids/cleansing/soothing Mental Status Exam - Vital signs Last Vital Signs Temp 97.9 F 05/06/22 08:37 Pulse 107 H 05/06/22 08:37 Resp 20 05/06/22 08:37 BP 147/77 05/06/22 08:37 Pulse Ox 98 05/06/22 09:17 Results Result Diagrams: 05/04/22 00:20 04/30/22 16:27 All other labs normal.
[2022-05-06 12:19] VITALS: BP 152/78
== END 2022-05-06 13:35 | disposition home or self-care (01) | DRG 787 ==
LOC: LD 14:51 → UNDOADMIN 14:51 → LD 16:16 → APU 05-03 12:57 → LD 05-03 13:58 → OB 05-04 15:18
PROVIDERS: ADMIT Obstetrics & Gynecology; ATTEND Obstetrics & Gynecology
PROC: 10D00Z1 Extraction of Products of Conception, Low, Open Approach (ICD-10-PCS; principal; 2022-05-03)
PROC: 10H07YZ Insertion of Other Device into Products of Conception, Via Natural or Artificial Opening (ICD-10-PCS; 2022-05-03)
DX: O13.4 Gestational [pregnancy-induced] hypertension without significant proteinuria, complicating childbirth (principal); O98.32 Other infections with a predominantly sexual mode of transmission complicating childbirth; O99.354 Diseases of the nervous system complicating childbirth; O62.1 Secondary uterine inertia; Z20.822 Contact with and (suspected) exposure to COVID-19; Z3A.35 35 weeks gestation of pregnancy; Z37.0 Single live birth; E66.01 Morbid (severe) obesity due to excess calories; A60.00 Herpesviral infection of urogenital system, unspecified; O67.9 Intrapartum hemorrhage, unspecified; O99.824 Streptococcus B carrier state complicating childbirth; O99.214 Obesity complicating childbirth; O24.429 Gestational diabetes mellitus in childbirth, unspecified control; G40.909 Epilepsy, unspecified, not intractable, without status epilepticus; O14.14 Severe pre-eclampsia complicating childbirth; O60.10X0 Preterm labor with preterm delivery, unspecified trimester, not applicable or unspecified
CPT/HCPCS: 36415; 81001; 82565; 82962; 83615; 83735; 84450; 84460; 84550; 85014; 85018; 85027; 86850; 86900; 86901; G0378; J3490; Q9967; J0290; J0360; J0595; J0690; J0702; J1170; J1815; J1885; J2270; J2370; J2405; J2590; J2765; J3475; J7120; U0003